=== PATIENT | male | born 1995 | race Asian ===

== ENCOUNTER 2017-03-04 08:20 | Emergency (ER) | payer OTHER ==
[~2017-03-04] VITALS: Ht 167.6 cm; Wt 77.1 kg
[2017-03-04] MEDS ORDERED: ACETAMINOPHEN 325 MG TAB PO ONE (09:00)
[2017-03-04] MEDS ORDERED: IBUPROFEN 600 MG TAB PO ONE (09:00)
--- NOTE | 2017-03-04 09:36 | REP ---
Chest two views HISTORY: Cough Comparison: None The lungs are clear. The heart is normal in size. The pulmonary vasculature is normal in appearance. The bony structure is intact. IMPRESSION: No acute disease. Signed by Rogerio Rush MD 03/04/2017 09:26 A
[2017-03-04] MEDS ORDERED: DOXY100C37 PO (11:04)
[2017-03-04] MEDS ORDERED: IBUP600T26 PO (11:05)
[2017-03-04 11:19] VITALS: BP 136/64
== END 2017-03-04 11:22 | disposition home or self-care (01) ==
LOC: EDBD 08:20 → M ED 09:31
DX: J20.9 Acute bronchitis, unspecified (principal)